=== PATIENT | female | born 1995 | race Caucasian/White ===

== ENCOUNTER 2019-07-01 10:49 | Outpatient (CLI) | payer SELFPAY ==
--- NOTE | 2019-07-01 11:00 | US_ITS ---
WS: [id number] ULTRASOUND BILATERAL BREASTs HISTORY: Bilateral palpable nodules. COMPARISON: None available. TECHNIQUE: 2-D and Doppler. Bilateral breast ultrasound is performed. Patient directed network support administrator to areas of palpable nodularit y. There are no underlying masses or distortion identified. No solid or cystic masses, skin thickenin g or increased vascularity. No dilated ducts. US/US breast BI limited* [id number] IMPRESSION: BI-RADS: 1-Negative FOLLOW-UP: See Report No additional imaging at this time. Normal breast in the areas of nodularity. I f nodules become more masslike and there is persistent bloody nipple discharge mammogram can be obtained at that time. At this time mammogram would probably n ot provide additional information due to young age of the patient.
== END 2019-07-01 10:50 | disposition home or self-care (01) ==
LOC: RAD 10:53
PROVIDERS: PCP Physician Assistant Medical; Visit Provider Nurse Practitioner Family
DX: N63.20 Unspecified lump in the left breast, unspecified quadrant (principal)
CPT/HCPCS: 76642

== ENCOUNTER 2019-12-28 18:41 | Emergency (ER) | payer OTHER, SELFPAY ==
[2019-12-28 18:45] VITALS: BP 133/91; PULSE 145; RESP 20; TEMP 36.9; O2SAT 98; BMI 26.4
--- NOTE | 2019-12-28 19:05 | ED_ITS ---
HPI - Back Pain/Injury General: Chief Complaint: Back Pain/Injury Stated Complaint: lwr abd and lwr back pain Time Seen by Provider: 12/28/19 18:56 History of Present Illness: HPI Narrative: 24-year-old female patient presents to the emergency department with left chest pain radiating to her lower back. She reports onset at 11 AM this morning. Reports that as crampy/sharp. She denies fever, reports nausea vomiting this morning. Reports prior to arrival was able to eat pizza without nausea or vomiting. She denies nausea at this time. She reports methamphetamine use this afternoon. 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 Reports cough and congestion. Tested for COVID approximately 1.5 months prior. Reports spontaneous bruising to the BLE but reports current bruises are old. 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 this afternoon) Timing: intermittent Severity: moderate Similar Symptoms Previously: Yes (with COVID symptoms) Quality: aching Location: left upper back and left lower back Radiation: abdomen and chest Exacerbating factors: none Relieving factors: walking Associated symptoms: Reports abdominal pain, fatigue, nausea (denies current), vomiting (denies current) and weakness; Deny chills, dysuria or fever(s) Work related injury: No Review of Systems General: Reports: 10 or more systems reviewed and unremarkable except in HPI and below Const: Reports: fatigue and diaphoresis; Denies: fever(s) or chills Eyes: Denies: blurry vision or eye redness ENMT: Denies: throat pain, dental pain or disequilibrium Card: Reports: chest pain (left lower); Denies: palpitations or irregular heart rhythm Resp: Reports: dyspnea and non-productive cough; Denies: productive cough or wheezing GI: Reports: abdominal pain, nausea (denies current) and vomiting (denies current) : Denies: difficulty voiding or dysuria Musc: Denies: back pain Skin/Breast: Denies: rash or pruritus Neuro: Denies: headache(s), weakness in extremities or behavioral changes Sheng/Lymph: Denies: easy bruising PFS ED PFSH: Medical History (Updated 12/28/19 @ 22:43 by VERITO Moralez) PCOS (polycystic ovarian syndrome) Tourette's Surgical History S/P cholecystectomy Family History Grandmother Cancer breast cancer Social History Smoking and tobacco status: current some day smoker Second hand smoke exposure: No Smoking risk assessment/counseling performed?: No Alcohol intake: never Desire information about alcohol rehabilitation?: No Counseling given: No Desire information about substance/drug rehabilitation?: No Counseling given: No Physical Exam Const: COMMON NORMALS: patient oriented x3, alert and well nourished GENERAL APPEARANCE: cooperative, comfortable, well kempt, diaphoretic and well hydrated NUTRITIONAL APPEARANCE: thin ORIENTATION/CONSCIOUSNESS: Yes awake, Yes oriented to person, Yes oriented to place and Yes oriented to time HENMT: COMMON NORMALS: normocephalic, Normal external nose present and moist oral mucous membranes HEAD & SCALP: normocephalic NOSE: Normal external nose present Eye: COMMON NORMALS: Equal, round and reactive pupils present and EOMs intact bilaterally GENERAL EYE: appearance normal, both eyes and all related structures PUPIL: Yes Equal, round and reactive pupils present Neck/C-Spine: COMMON NORMALS: full ROM and no lymphadenopathy GENERAL: Yes normal visual inspection and Yes trachea midline CERVICAL SPINE: Yes cervical ROM normal Lymph: LYMPHATIC: no lymphadenopathy noted Chest: COMMONS NORMALS: normal inspection of the chest and normal palpation of entire chest wall Resp: COMMON NORMALS: normal respiratory effort and clear to auscultation bilaterally EFFORT & INSPECTION: Yes able to speak in complete sentences, Yes symmetric chest movement and No respiratory distress AUSCULTATION: clear to auscultation bilaterally Cardio: COMMON NORMALS: regular rate, regular rhythm, S1 normal heart sound present, S2 normal heart sound present and Peripheral pulses 2+ throughout RATE: regular rate and tachycardic RHYTHM: regular rhythm HEART SOUNDS: S1 normal heart sound present and S2 normal heart sound present PERIPHERAL PULSES: Peripheral pulses 2+ throughout GI: COMMON NORMALS: Soft to palpation INSPECTION: Yes normal to inspection AUSCULTATION: Yes normoactive bowel sounds PALPATION: Yes Soft to palpation and Yes Tenderness to palpation present (GI) Details: LLQ and LUQ : BLADDER/KIDNEY EXAM: Yes CVA tenderness Back/Pelvis: COMMON NORMALS: thoracic and lumbar spine normal to inspection GENERAL BACK: Yes CVA tenderness CVA tenderness: left LUMBAR SPINE/LOWER BACK: Yes normal to inspection, Yes pain with ROM and Yes lumbar spinal tendern ess Lumbar spinal tenderness location: L3, L4 and L5 Extremity: COMMON NORMALS: normal to inspection and capillary refill normal Neuro: COMMON NORMALS: patient oriented x3 and no focal motor deficits SENSORIUM/ORIENTATION: Yes alert, Yes oriented to person, Yes oriented to place and Yes oriented to time Psych: COMMON NORMALS: mental status grossly normal, Normal thought process present and cooperative APPEARANCE: Yes well kempt ACTIVITY/MOTOR BEHAVIOR: Yes appropriate eye contact THOUGHT PROCESS: Normal thought process present Skin: COMMON NORMALS: no rashes or lesions noted and turgor normal GENERAL SKIN EXAM: no rashes or lesions noted, turgor normal and ecchymosis (2 cm x 2 cm resolving areas of ecchymosis to the RLE, medial sporatic) OTHER: negative ecchymosis to the BUE or LLL, none to the torso Course ED course: 24-year-old female patient presents to the emergency department with complaints of abdominal pain. Liver enzymes were noted to be elevated, CT of the abdomen and pelvis with contrast completed without abnormalities, she was treated for STD, chlamydia gonorrhea as well as trichomonas during the emergency department visit. After treatment in room prior to hepatitis panel results, patient was found to have eloped from the emergency department with IV access to the right AC intact. [place] [employer] was contacted, she we have attempted to contact her via phone to have her return to the emergency department for results. Vital Signs: Vital signs: Vital Signs Temperature 98.4 F 12/28/19 18:45 Pulse Rate 145 H 12/28/19 18:45 Respiratory Rate 20 H 12/28/19 18:45 Blood Pressure 133/91 12/28/19 18:45 Pulse Oximetry 98 12/28/19 18:45 MDM - Back Pain/Injury Differential Diagnosis: Differential diagnosis back pain/injury: Likely lumbar radiculopathy, pyelonephritis and AAA Lab Data: Labs: Lab Results 12/28/19 12/28/19 12/28/19 Range/Units 19:05 19:05 19:05 WBC 9.9 (4.0-10.0) 10^3/ uL RBC 5.05 (4.1-5.3) 10^6/u L Hgb 13.5 (11.5-15.3) g/dL Hct 42.3 (37.0-47.0) % MCV 83.8 (81-99) fL MCH 26.7 L (28.0-34.0) pg MCHC 31.9 (30.0-36.0) g/dL RDW 14.6 (12.1-15.1) % Plt Count 313 (130-400) 10^3/c mm MPV 9.1 (7.4-10.4) fL Neut % (Auto) 95.7 % Lymph % (Auto) 2.1 % [place] % (Auto) 0.9 % Eos % (Auto) 0.3 % Baso % (Auto) 0.4 % Neut # (Auto) 9.46 H (1.8-7.7) 10^3/u L Lymph # (Auto) 0.2 L (0.8-4.8) 10^3/u L [place] # (Auto) 0.1 L (0.2-0.9) 10^3/u L Eos # (Auto) 0.0 (0.0-0.8) 10^3/u L Baso # (Auto) 0.0 (0.0-0.1) 10^3/u L Nucleated RBC % (a uto) 0 % Nucleated RBCs # 0.0 /100WBC PT (12.1-14.9) SECO NDS INR (0.8-1.2) APTT (23.9-36.7) SECO NDS Sodium 135 L (136-145) mmol/L Potassium 3.6 (3.5-5.1) mmol/L Chloride 101 (98-107) mmol/L Carbon Dioxide 22 (22-29) mmol/L Anion Gap 15.6 (5-19) BUN 17 (6-20) mg/dL Creatinine 0.9 (0.5-0.9) mg/dL GFR Calculation 78.3 L (90-130) mL/min Glucose 118 H (65-115) mg/dL Calculated Osmolal ity 283 L (285-295) mOsm/k g Calcium 9.0 (8.5-10.5) mg/dL Total Bilirubin 0.7 (0.15-1.2) mg/dL AST 1730 H (0-32) U/L ALT 1078 H (0-33) U/L Alkaline Phosphata se 105 (35-105) IU/L Total Protein 6.9 (6.6-8.7) g/dL Albumin 3.9 (3.5-5.2) g/dL Globulin 3.0 (1.3-4.6) g/dL Lipase 29 (13-60) U/L HCG, Qual Negative (Negative) Urine Color (Yellow) Urine Appearance (CLEAR) Urine pH (5-7) Ur Specific Gravit y (1.005-1.030) Urine Protein (Negative) Urine Glucose (UA) (Normal) Urine Ketones (Negative) Urine Blood (Negative) Urine Nitrate (Negative) Urine Bilirubin (Negative) Urine Urobilinogen (Negative) mg/dL Ur Leukocyte Maddy ase (Negative) Urine RBC (0-2) /hpf Urine WBC (0-5) /hpf Ur Squamous Epith Cells (0-5) /hpf Amorphous Sediment Urine Bacteria (NONE) /hpf Urine Trichomonas /hpf Hepatitis A IgM Ab (Nonreactive) Hep Bs Antigen (Nonreactive) Hep Bs Antibody (0-8.5) Hep B Core Total A b (Nonreactive) Hepatitis C Antibo dy (Nonreactive) 12/28/19 12/28/19 12/28/19 Range/Units 19:05 19:05 20:23 WBC (4.0-10.0) 10^3/ uL RBC (4.1-5.3) 10^6/u L Hgb (11.5-15.3) g/dL Hct (37.0-47.0) % MCV (81-99) fL MCH (28.0-34.0) pg MCHC (30.0-36.0) g/dL RDW (12.1-15.1) % Plt Count (130-400) 10^3/c mm MPV (7.4-10.4) fL Neut % (Auto) % Lymph % (Auto) % [place] % (Auto) % Eos % (Auto) % Baso % (Auto) % Neut # (Auto) (1.8-7.7) 10^3/u L Lymph # (Auto) (0.8-4.8) 10^3/u L [place] # (Auto) (0.2-0.9) 10^3/u L Eos # (Auto) (0.0-0.8) 10^3/u L Baso # (Auto) (0.0-0.1) 10^3/u L Nucleated RBC % (a uto) % Nucleated RBCs # /100WBC PT 13.50 (12.1-14.9) SECO NDS INR 1.00 (0.8-1.2) APTT 29.1 (23.9-36.7) SECO NDS Sodium (136-145) mmol/L Potassium (3.5-5.1) mmol/L Chloride (98-107) mmol/L Carbon Dioxide (22-29) mmol/L Anion Gap (5-19) BUN (6-20) mg/dL Creatinine (0.5-0.9) mg/dL GFR Calculation (90-130) mL/min Glucose (65-115) mg/dL Calculated Osmolal ity (285-295) mOsm/k g Calcium (8.5-10.5) mg/dL Total Bilirubin (0.15-1.2) mg/dL AST (0-32) U/L ALT (0-33) U/L Alkaline Phosphata se (35-105) IU/L Total Protein (6.6-8.7) g/dL Albumin (3.5-5.2) g/dL Globulin (1.3-4.6) g/dL Lipase (13-60) U/L HCG, Qual (Negative) Urine Color Yellow (Yellow) Urine Appearance Hazy A (CLEAR) Urine pH 5 (5-7) Ur Specific Gravit y 1.010 (1.005-1.030) Urine Protein Neg (Negative) Urine Glucose (UA) Norm (Normal) Urine Ketones Negative (Negative) Urine Blood Neg (Negative) Urine Nitrate Negative (Negative) Urine Bilirubin Neg (Negative) Urine Urobilinogen 1 H (Negative) mg/dL Ur Leukocyte Maddy ase Negative (Negative) Urine RBC 0-4 H (0-2) /hpf Urine WBC None (0-5) /hpf Ur Squamous Epith Cells 40-55 H (0-5) /hpf Amorphous Sediment Not Reportable Urine Bacteria 2+ H (NONE) /hpf Urine Trichomonas 3+ H /hpf Hepatitis A IgM Ab Non-reactive (Nonreactive) Hep Bs Antigen Non-reactive (Nonreactive) Hep Bs Antibody 3.5 (0-8.5) Hep B Core Total A b Non-reactive (Nonreactive) Hepatitis C Antibo dy Non-reactive (Nonreactive) EKG Data^: EKG 1: EKG interpretation date: 12/28/19 EKG interpretation time: 19:50 Prior EKG tracings: not available for review Computer generated interpretation: Sinus tachycardia, abnormal EKG Discharge Plan Discharge Patient Disposition: Left Against Medical Advice Clinical Impression: Hepatitis, Trichomonal infection Abdominal pain Qualifiers: Abdominal location: generalized Qualified Code(s): R10.84 - Generalized abd ominal pain Condition: Stable Prescriptions: No Action ibuprofen 200 mg Tablet 400 mg PO PRN RF: 0 Referrals: Yann Mccormick [Primary Care Provider] - Patient Instructions: Abdominal Pain (ED) Discharge Date/Time: 12/28/19 22:48 Coding Level of Care Code ED Well Treatment Offsider for Chg Fwd Exam Comprehensive
[2019-12-28 19:13] LABS: Basophils % 0.4 %; Eosinophils % 0.3 %; Hematocrit 42.3 % (37.0-47.0); Hemoglobin 13.5 g/dL (11.5-15.3); Lymphocytes # 0.2 10^3/uL (0.8-4.8); Lymphocytes % 2.1 %; Mean Corpuscular HGB Conc 31.9 g/dL (30.0-36.0); Mean Corpuscular Hemoglobin 26.7 pg (28.0-34.0); Mean Corpuscular Volume 83.8 fL (81-99); Mean Platelet Volume 9.1 fL (7.4-10.4); Monocytes # 0.1 10^3/uL (0.2-0.9); Monocytes % 0.9 %; Neutrophils # 9.46 10^3/uL (1.8-7.7); Neutrophils % 95.7 %; Nucleated Red Blood Cells % 0 %; Platelet Count 313 10^3/cmm (130-400); Red Blood Count 5.05 10^6/uL (4.1-5.3); Red Cell Distribution Width 14.6 % (12.1-15.1); White Blood Count 9.9 10^3/uL (4.0-10.0)
--- NOTE | 2019-12-28 19:30 | ECG_ITS ---
[facility] Test Date: 2019-12-28 Pat Name: Dana Cruz Department: Room: Gender: Female Credit Report Checker: : 1995 Requested By: Imelda Anderson Order Number: [id number] Burrell MD: Lawanda Araujo M.D. Measurements Intervals [place] Rate: 126 P: 56 CT: 136 QRS: 53 QRSD: 94 T: 53 QT: 304 QTc: 441 Interpretive Statements SINUS TACHYCARDIA ABNORMAL RHYTHM ECG No previous ECG available for comparison Electronically Signed On 12-29-2019 19:26:30 CDT by Lawanda Araujo M.D. [id number]
[2019-12-28 19:36] LABS: Partial Thromboplastin Time 29.1 SECONDS (23.9-36.7)
[2019-12-28 19:43] LABS: HCG, Serum Qual Negative (Negative)
[2019-12-28 19:46] LABS: Albumin Level 3.9 g/dL (3.5-5.2); Alkaline Phosphatase 105 IU/L (35-105); Anion Gap 15.6 (5-19); Blood Urea Nitrogen 17 mg/dL (6-20); Carbon Dioxide 22 mmol/L (22-29); Chloride 101 mmol/L (98-107); Glomerular Filtration Rate 78.3 mL/min (90-130); Glucose 118 mg/dL (65-115); Lipase 29 U/L (13-60); Osmolality Calculated 283 mOsm/kg (285-295); Potassium 3.6 mmol/L (3.5-5.1); Sodium 135 mmol/L (136-145); Total Bilirubin 0.7 mg/dL (0.15-1.2); Total Protein 6.9 g/dL (6.6-8.7)
--- NOTE | 2019-12-28 19:51 | XR_ITS ---
WS: [id number] Portable AP and lateral upright chest, 12/28/2019 Clinical Data: CP Comparison: None. Findings: No nodules, masses or effusions are seen. The heart is normal. The pulmonary vascularity is not increased. No pneumonia or pneumothorax is seen. XR/XR chest 2V* [id number] Impression: Negative chest.
[2019-12-28] MEDS: sodium chloride 0.9% 500 ML 999 ML IV (19:56)
[2019-12-28 19:57] LABS: Alanine Aminotransferase 1078 U/L (0-33)
[2019-12-28 19:58] LABS: Aspartate Amino Transferase 1730 U/L (0-32)
--- NOTE | 2019-12-28 20:12 | CTR_ITS ---
PROCEDURE INFORMATION: Exam: CT Abdomen And Pelvis With Contrast Exam date and time: 12/28/2019 8:26 PM Age: 24 years old Clinical indication: Nausea and vomiting; Abdominal pain; Periumbilical; Prior surgery; Surgery type: Gb; Additional info: Elevated liver enzymes TECHNIQUE: Imaging protocol: Computed tomography of the abdomen and pelvis with intravenous contrast. Axial, coronal and sagittal reformatted images were created and reviewed. Radiation optimization: All CT scans at this facility use at least one of these dose optimization techniques: automated exposure control; mA and/or kV adjustment per patient size (includes targeted exams where dose is matched to clinical indication); or iterative reconstruction. Contrast material: OMNI 300; Contrast volume: 95 ml; Contrast route: INTRAVENOUS (IV); COMPARISON: US pelvic with transvaginal 08/13/2015 8:06 PM RADIATION DOSE METRICS: Total DLP (mGy-cm): 465.96 FINDINGS: Liver: Unremarkable. Gallbladder and bile ducts: Status post cholecystectomy. No biliary ductal dilatation. Pancreas: Unremarkable. Spleen: Unremarkable. Adrenals: Unremarkable. Kidneys and ureters: No mass. No radiodense calculi. No hydronephrosis. Stomach and bowel: No bowel wall thickening. No obstruction. No pneumatosis. Appendix: Normal. Intraperitoneal space: No free fluid. No organized fluid collection. No free air. Vasculature: Unremarkable. No aneurysm. Lymph nodes: No pathologically enlarged lymph nodes. Urinary bladder: Unremarkable as visualized. Reproductive: Probable involuting left ovarian corpus luteal cyst versus dominant follicle. Bones/joints: No acute osseous abnormality. Soft tissues: Unremarkable. CT/CT abdomen pelvis w con* [id number]: 1[address] No [address] evidence of acute intra-abdominal or pelvic pathology. 2. Additional findings, as above. Radiation Dose CTDIVOL = (mGy): DLP = 465.96 (mGy-cm)
[2019-12-28] MEDS: iohexol 300 mg/mL 100 mL Btl IV (20:27)
[2019-12-28 21:22] LABS: Add Urine Microscopic? YES; Bilirubin Urine Neg (Negative); Blood Urine Neg (Negative); Glucose Urine UA Norm (Normal); Ketones Urine Negative (Negative); Leukocyte Esterase Urine Negative (Negative); Nitrate Urine Negative (Negative); Protein Urine Neg (Negative); Urine Appearance Hazy (CLEAR); Urine Color Yellow (Yellow); Urobilinogen Urine 1 mg/dL (Negative); pH Urine 5 (5-7)
[2019-12-28 21:27] LABS: Add Urine Culture? No; Bacteria Urine 2+ /hpf; RBC Urine 0-4 /hpf (0-2); Squamous Epithelial Cell Urine 40-55 /hpf (0-5); Trichomonas Urine 3+ /hpf
[2019-12-28] MEDS: azithromycin 250 mg Tablet 1000 MG PO (22:05)
[2019-12-28] MEDS: metroNIDAZOLE 500 MG Tablet 2000 MG PO (22:06)
[2019-12-28 22:37] LABS: Hepatitis A Antibody IgM Non-Reactive (Nonreactive); Hepatitis B Surface AB 3.5 (0-8.5); Hepatitis B Surface Antigen Non-Reactive (Nonreactive); Hepatitis C Virus Antibody Non-Reactive (Nonreactive)
[2019-12-28 22:43] LABS: Hepatitis B Core AB, Total Non-Reactive (Nonreactive)
--- NOTE | 2019-12-28 22:44 | PC.NURSE ---
A staff member asked this RN where the patient was as she wasn't in her room. This RN observed that patient had left room, registration personnel in waiting room confirm that she left the ER. THis RN proceeded to the parking lot and didn't see the patient, security then notified and local PD as the patient left with an IV and has a hx of IV drug abuse.
== END 2019-12-28 22:48 | disposition left against medical advice (07) ==
PROVIDERS: Emergency Medicine; Emergency Provider Nurse Practitioner Family; PCP Physician Assistant Medical
DX: R10.84 Generalized abdominal pain (principal); K75.9 Inflammatory liver disease, unspecified; A59.9 Trichomoniasis, unspecified; Z53.21 Procedure and treatment not carried out due to patient leaving prior to being seen by health care provider; F17.210 Nicotine dependence, cigarettes, uncomplicated
CPT/HCPCS: 12345; 71046; 74177; 80053; 81001; 83690; 84703; 85025; 85610; 85730; 86705; 86706; 86709; 86803; 87340; 93005; 96372; 99283; 99284; J0696; J7040; Q0144; Q9967